=== PATIENT | male | born 1995 | race Caucasian/White ===

== ENCOUNTER 2021-02-01 18:50 | Emergency (ER) | payer MEDICAID ==
[~2021-02-01] VITALS: Ht 182.9 cm; Wt 100.0 kg
[2021-02-01 22:23] LABS: BASOPHILS % 0.7 % (0.0-2.0); EOSINOPHILS % 3.2 % (0.0-5.0); HEMATOCRIT. 35.4 % (42.0-52.0); HEMOGLOBIN. 11.9 g/dL (14.0-18.0); LYMPHOCYTES % 40.3 % (20.0-50.0); MEAN CORPUSCULAR HEMOGLOBIN 27.3 pg (28.0-32.0); MEAN CORPUSCULAR VOLUME 81.5 fL (80.0-94.0); MEAN PLATELET VOLUME 7.6 fl (7.4-10.4); MONOCYTES % 7.2 % (2.0-8.0); NEUTROPHILS % 48.6 % (40.0-76.0); PLATELET 498 x1000/uL (130-400); RED BLOOD CELL COUNT 4.34 mill/uL (4.7-6.1); RED CELL DISTRIBUTION WIDTH 14.3 % (11.6-14.6)
[2021-02-01 22:31] LABS: CHLORIDE 110 mEq/L (98-107)
[2021-02-01 22:35] LABS: ETHANOL BLOOD < 10 mg/dL
[2021-02-01 22:45] LABS: CLARITY URINE CLOUDY (CLEAR); COLOR URINE YELLOW (YELLOW); KETONES URINE TRACE (NEGATIVE); LEUKOCYTE ESTERASE URINE TRACE (NEGATIVE); NITRITE URINE NEGATIVE (NEGATIVE); OCCULT BLOOD URINE NEGATIVE (NEGATIVE); PROTEIN URINE NEGATIVE (NEGATIVE); SPECIFIC GRAVITY URINE 1.031 (1.005-1.030)
[2021-02-01 22:55] LABS: *AMPHETAMINES SCREEN URINE NEGATIVE (NEGATIVE); *BARBITURATES SCREEN URINE NEGATIVE (NEGATIVE); *BENZODIAZEPINES SCREEN URINE NEGATIVE (NEGATIVE); *COCAINE SCREEN URINE NEGATIVE (NEGATIVE); METHADONE URINE SCREEN NEGATIVE (NEGATIVE); OPIATES URINE SCREEN NEGATIVE (NEGATIVE); PHENCYCLIDINE URINE SCREEN NEGATIVE (NEGATIVE)
[2021-02-01 22:56] LABS: CANNABINOID URINE SCREEN NEGATIVE (NEGATIVE)
[2021-02-01 23:56] VITALS: BP 114/70
== END 2021-02-02 | disposition home or self-care (01) ==
LOC: ER 19:01
DX: F32.9 Major depressive disorder, single episode, unspecified (principal); D64.9 Anemia, unspecified; J45.909 Unspecified asthma, uncomplicated; Z88.0 Allergy status to penicillin; Z20.822 Contact with and (suspected) exposure to COVID-19
CPT/HCPCS: 36415; 80053; 80305; 80320; 81003; 82962; 85025; 99283; C9803; U0003; U0005; G0480

== ENCOUNTER 2021-02-24 03:32 | Emergency (ER) | payer MEDICAID ==
[~2021-02-24] VITALS: Ht 182.9 cm; Wt 100.0 kg
[2021-02-24] MEDS ORDERED: KETOROLAC 60MG/2ML VIAL IM ONE (04:15)
[2021-02-24] MEDS ORDERED: NAPR-681 MT (05:34)
[2021-02-24 05:49] VITALS: BP 125/86
== END 2021-02-24 05:49 | disposition home or self-care (01) ==
LOC: ER 03:32
DX: S52.591A Other fractures of lower end of right radius, initial encounter for closed fracture (principal); Z88.0 Allergy status to penicillin; Z91.040 Latex allergy status; W10.8XXA Fall (on) (from) other stairs and steps, initial encounter; Y93.89 Activity, other specified; Y92.018 Other place in single-family (private) house as the place of occurrence of the external cause
CPT/HCPCS: 29125; 73110; 96372; 99283; J1885

== ENCOUNTER 2024-11-18 16:58 | Emergency (ER) | payer SELFPAY ==
[~2024-11-18] VITALS: Ht 177.8 cm; Wt 75.0 kg
[~2024-11-18 16:58] MED LIST: NAPR-681 MT
[2024-11-18 17:09] VITALS: BP 132/76; PULSE 90; RESP 16; TEMP 37.2; O2SAT 99
== END 2024-11-18 19:58 | disposition left against medical advice (07) ==
LOC: ER 16:58
DX: M79.604 Pain in right leg (principal); Z53.21 Procedure and treatment not carried out due to patient leaving prior to being seen by health care provider

== ENCOUNTER 2025-03-07 23:38 | Emergency (ER) | payer SELFPAY ==
[~2025-03-07] VITALS: Ht 182.9 cm; Wt 82.0 kg
[2025-03-07 23:45] VITALS: TEMP 36.8; O2SAT 98
[2025-03-08] MEDS: ONDANSETRON 4MG ODT PO ONE (00:16)
[2025-03-08] MEDS: DIPHENHYDRAMINE 25MG CAPSULE PO ONE (00:46)
[2025-03-08] MEDS: METHYLPREDNISOLONE SOD SUCC 125MG/2ML (ACT-O-VIAL) IM ONE (00:46)
[2025-03-08] MEDS ORDERED: DIPH25CA83 MT (02:00)
[2025-03-08] MEDS ORDERED: P50 MT (02:00)
[2025-03-08 02:15] VITALS: BP 113/76; PULSE 82; RESP 18; O2SAT 100
== END 2025-03-08 02:16 | disposition home or self-care (01) ==
LOC: ER 23:38
DX: T78.40XA Allergy, unspecified, initial encounter (principal); R21 Rash and other nonspecific skin eruption; Z88.0 Allergy status to penicillin; Z88.8 Allergy status to other drugs, medicaments and biological substances; Z91.040 Latex allergy status; X58.XXXA Exposure to other specified factors, initial encounter
CPT/HCPCS: 99283; 96372; Q0163; Q0162; J2919; Z7610